=== PATIENT | male | born 1955 | race Hispanic/Latino ===

== ENCOUNTER 2023-09-23 09:08 | Emergency (ER) | payer MEDICARE, SELFPAY ==
[2023-09-23 09:09] VITALS: BP 137/73
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
[2023-09-23] MEDS: TORADOL 30 MG IM (10:15)
== END 2023-09-23 11:04 | disposition home or self-care (01) ==
LOC: EMR 09:08
PROVIDERS: EMERGENCY PHYSICIAN Emergency Medicine
DX: S83.92XA Sprain of unspecified site of left knee, initial encounter (principal); V89.2XXA Person injured in unspecified motor-vehicle accident, traffic, initial encounter
CPT/HCPCS: 99284; 96372; 73564